=== PATIENT | male | born 1960 | race Caucasian/White ===

== ENCOUNTER 2020-12-03 18:19 | Emergency (ER) | payer BC ==
[2020-12-03 18:27] VITALS: BP 127/83
--- NOTE | 2020-12-03 18:43 | ED Physician Documentation ---
History of Present Illness - Stated complaint Stated Complaint: POST OP PX/RT KNEE - Chief complaint Chief Complaint: Ext Problem - History obtained from History obtained from: Patient - Additonal information Additional information: This is a 60-year-old male who underwent a right total knee replacement on 11/24/2020 at a facility in [place]. He presents today to rule out DVT. He states he was concerned due to increased swelling and pitting edema and the right lower leg as well as "burning" tenderness of the medial right lower leg. Discussed these findings with his surgeon who stated the bruising was as expected but recommended that he come in to rule out DVT. The patient does note that he had a fall on postop day #1 when he was at home and got up to walk and subsequently had a syncopal episode. The surgeon is aware of this and thought that perhaps his increased pain was secondary to the fall did not feel there is any damage to the surgical site. Been participating in physical therapy and states he has been really restricting his oxycodone use to approximately every 9 hours or so taking just 5 mg tablets and trying to wean himself off quickly as he does not want to be on this medication. Not had any fever, chills, flulike symptoms, chest pain or shortness of breath. No history of DVT or PE. Review of Systems Ten Systems: 10 systems reviewed and negative Musculoskeletal: reports: Extremity pain, Extremity swelling PD PAST MEDICAL HISTORY - Past Medical History Past Medical History: Yes - Past Surgical History Ortho: Knee replacement - Allergies Allergies/Adverse Reactions: Allergies Allergy/AdvReac Type Severity Reaction Status Date / Time No Known Drug Allergies Allergy Verified 12/03/20 18:21 PD ED PE NORMAL - Vitals Vital signs reviewed: Yes - General General: Alert and oriented X 3, No acute distress, Well developed/nourished - HEENT HEENT: Atraumatic, Pharynx benign - Cardiac Cardiac: RRR, No murmur - Respiratory Respiratory: No respiratory distress, Clear bilaterally - Derm Derm: Normal color, Warm and dry, Other (Bruising of the right leg as described below, no erythema or open lesions. Surgical site intact without erythema or drainage.) - Extremities Extremities: Other (There is a postop dressing to the right knee, there is no erythema around the surgical site or throughout the right leg. There is extensive bruising of the right medial and lateral thigh, behind the right knee, calf and around the medial right ankle. Skin is mildly tender to touch, does not feel jose) - Neuro Neuro: Alert and oriented X 3 Eye Opening: Spontaneous Motor: Obeys Commands Verbal: Oriented GCS Score: 15 Results - Vitals Vitals: Vital Signs - 24 hr 12/03/20 18:22 Temperature 36.5 C Heart Rate 86 Respiratory 16 Rate Blood Pressure 127/83 H O2 Saturation 96 Oxygen O2 Source Room air PD MEDICAL DECISION MAKING - ED course Complexity details: reviewed results, re-evaluated patient, considered differential, d/w patient ED course: 60-year-old male who presented approximately 9 days postop right total knee replacement with pain and swelling in the right lower leg. We obtained an ultrasound to rule out DVT and this was negative for DVT but did show an area of likely post operative seroma. There is no signs of cellulitis or focal abscess. The patient was advised to continue cool compress and therapy and pain medication as previously prescribed by his orthopedic surgeon follow-up with his orthopedic surgeon on Saturday as scheduled. Reviewed return precautions if he were to develop fever, increasing pain, shortness of breath or other new concerns. Departure - Departure Disposition: Home, Self Care Clinical Impression: Pain of lower extremity Qualifiers: Laterality: right Qualified Code(s): M79.604 - Pain in right leg Condition: Good Comments: You presented with swelling and pain in the right lower leg after a total knee replacement. We obtained an ultrasound which was reassuring and there are no signs of a deep vein thrombosis, abscess, or cellulitis (skin infection). You do have a fluid collection that is likely a postoperative seroma which can be painful but will dissipate with time as you heal. Please follow-up with your orthopedic surgeon on Saturday as previously scheduled, continue frequent cool compress and pain medication as needed. You may continue physical therapy as previously ordered.
--- NOTE | 2020-12-03 20:30 | Ultrasound Report ---
PROCEDURE: Duplex Ext Veins Right INDICATIONS: RLE pain/swelling s/p R TKR 11/24/20 TECHNIQUE: Real-time imaging, as well as color and pulse Doppler interrogation, were performed of the lower extr emity deep veins from the inguinal ligament to the popliteal fossa. COMPARISON: None. FINDINGS: The deep veins are normally compressible, and free of intraluminal thrombus. Color and pu lse Doppler demonstrate normal phasic intraluminal flow. There is normal augmentation response to di stal compression maneuver. Ill-defined hypoechoic collection within the soft tissue along medial aspect of right thigh extending to right knee level and measures up to 15.7 cm in length. No internal vascularity or peripheral hype rvascularity is seen. IMPRESSION: 1. No evidence of DVT in visualized right lower extremity veins. 2. Nonspecific deep soft tissue fluid collection along medial aspect of mid to distal right thigh and medial right knee joint and likely represent postsurgical seroma given patient's history of recent k nee replacement. No abscess collection is seen. No popliteal cyst. Reviewed by: Mino Ramsay MD on 12/03/2020 8:28 PM PDT Approved by: Mino Ramsay MD on 12/03/2020 8:28 PM PDT Station ID: [id number]
== END 2020-12-03 20:41 | disposition home or self-care (01) ==
LOC: ED 18:19
DX: G89.18 Other acute postprocedural pain (principal); Z96.651 Presence of right artificial knee joint; Z98.890 Other specified postprocedural states; R22.41 Localized swelling, mass and lump, right lower limb
CPT/HCPCS: 99282; 99284

== ENCOUNTER 2021-02-12 13:34 | Emergency (ER) | payer BC ==
[2021-02-12 14:01] VITALS: BP 125/81
[2021-02-12] MEDS ORDERED: BUPIVACAINE 0.5% PF 10 ML VIAL SUBQ STA (15:05)
--- NOTE | 2021-02-12 15:35 | ED Physician Documentation ---
History of Present Illness - Stated complaint Stated Complaint: MALE - Chief complaint Chief Complaint: General - History obtained from History obtained from: Patient - History of Present Illness Timing: How many days ago (2) - Additonal information Additional information: 60-year-old male who has had a problem with hemorrhoids previously has developed a hemorrhoid that has been giving him a problem for about 8 days. About 2 days ago it suddenly increased in size and the dramatic amount of pain he has, has been enough that he has not been able to sleep. He has severe pain just from coughing. He went into the clinic today saw Jes Aguilar who asked him to come up here to get the thrombosed hemorrhoid fixed. The patient has had this done once about 10 years ago. Review of Systems Constitutional: denies: Fever Respiratory: denies: Cough GI: reports: Other (rectal pain and mass). denies: Vomiting, Diarrhea : denies: Dysuria, Frequency PD PAST MEDICAL HISTORY - Past Surgical History Ortho: Knee replacement - Allergies Allergies/Adverse Reactions: Allergies Allergy/AdvReac Type Severity Reaction Status Date / Time No Known Drug Allergies Allergy Verified 02/12/21 14:01 PD ED PE NORMAL - Vitals Vital signs reviewed: Yes (hpyertensive ) - General General: Alert and oriented X 3, Well developed/nourished, Other (appears anxious ) - HEENT HEENT: Atraumatic, PERRL, EOMI - Respiratory Respiratory: No respiratory distress - Rectal Rectal: Other (There is a 10mm sized mass that is firm at 2 O'clock. The area is clean and the mass is not reducible. 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, No motor deficit, No sensory deficit, Normal speech Eye Opening: Spontaneous Motor: Obeys Commands Verbal: Oriented GCS Score: 15 - Psych Psych: Normal mood, Normal affect Results - Vitals Vitals: Vital Signs - 24 hr 02/12/21 13:59 Temperature 36.4 C L Heart Rate 69 Respiratory 16 Rate Blood Pressure 125/81 H O2 Saturation 98 Oxygen O2 Source Room air Procedures - General procedure General procedure: Patient was placed in the left lateral decubitus position and with his assist ance holding up the buttocks cheek the hemorrhoid was infused with half percent bupivicaine from the radial surface allowing excellent anesthesia. The area was cleansed with Betadine draped in a sterile fashion and a #11 blade was used to incise the skin over the hemorrhoid and with a curved forceps the clot was removed. The hemorrhoid is left open and there is scant bleeding. The patient has relief of pain. Departure - Departure Disposition: 01 Home, Self Care Clinical Impression: Thrombosed external hemorrhoid Condition: Stable Instructions: Hemorrhoids Thrombosed Follow-Up: CAMPOS NDIAYE MD [Primary Care Provider] - Comments: Mulugeta, today it looks like you had a thrombosed hemorrhoid and we were able to remove the clot. Your pain should be much improved. The numbing medicine we use will last about 4 to 6 hours. Clean well after a bowel movement and expect continued improvement in your pain over the next week. Discharge Date/Time: 02/12/21 15:43
== END 2021-02-12 15:43 | disposition home or self-care (01) ==
LOC: ED 13:34
DX: K64.5 Perianal venous thrombosis (principal)
CPT/HCPCS: 46083

== ENCOUNTER 2021-02-13 08:24 | Emergency (ER) | payer BC ==
[2021-02-13] MEDS ORDERED: LIDOCAINE/PRILOCAINE 2.5% CREAM 5 GM TUBE TOP STA (09:06)
[2021-02-13] MEDS ORDERED: BUPIVACAINE 0.5% PF 10 ML VIAL SUBQ STA (09:06)
--- NOTE | 2021-02-13 10:13 | ED Physician Documentation ---
PD HPI MALE - Stated complaint Stated Complaint: MALE - Chief complaint Chief Complaint: Abd Pain - History obtained from History obtained from: Patient - History of Present Illness Timing - onset: Yesterday Timing - duration: Days (1) Timing - details: Abrupt onset, Still present Associated symptoms: Other (painful hemorroid) Similar symptoms before: Diagnosis (thrombosed hemorrhoid) Recently seen: Clinic, Emergency Dept - Additional information Additional information: 60-year-old male seen in the emerge department yesterday for thrombosed hemorrhoid and he had the thrombosis excised with an incision. He comes back today with swelling to the area and tenderness and he is worried about persistent clot.He has persistent pain. Review of Systems Constitutional: denies: Fever, Chills Respiratory: denies: Cough GI: reports: Other (rectal pain and mass). denies: Abdominal Pain, Nausea, Vomiting : denies: Dysuria, Frequency PD PAST MEDICAL HISTORY - Past Surgical History Ortho: Knee replacement - Present Medications Home Medications: Ambulatory Orders Medication Instructions Recorded Confirmed Lidocaine/Prilocain 2.5% Cream 1 each TP TID PRN #4 kit 02/13/21 [Emla 2.5% Cream] - Allergies Allergies/Adverse Reactions: Allergies Allergy/AdvReac Type Severity Reaction Status Date / Time No Known Drug Allergies Allergy Verified 02/13/21 08:32 - Social History Does the pt smoke?: No Smoking Status: Never smoker PD ED PE NORMAL - Vitals Vital signs reviewed: Yes (normal ) - General General: Alert and oriented X 3, No acute distress, Well developed/nourished - HEENT HEENT: Atraumatic, PERRL, EOMI - Respiratory Respiratory: No respiratory distress - Rectal Rectal: Other (The rectum is reexamined and there remains a 1 cm mass present this looks like swelling and ecchymosis around the surgical site. The hemorrhoidal mass itself no longer has a clot in it. 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, No motor deficit, No sensory deficit, Normal speech Eye Opening: Spontaneous Motor: Obeys Commands Verbal: Oriented GCS Score: 15 - Psych Psych: Normal mood, Normal affect Results - Vitals Vitals: Vital Signs - 24 hr 02/13/21 02/13/21 08:34 10:46 Temperature 36.7 C 36.7 C Heart Rate 98 90 Respiratory 18 14 Rate Blood Pressure 120/76 125/80 O2 Saturation 98 99 Oxygen O2 Source Room air PD MEDICAL DECISION MAKING - ED course Complexity details: reviewed results, re-evaluated patient, considered differential, d/w patient ED course: 60-year-old male with a thrombosed hemorrhoid that was opened and the clot removed yesterday has persistence of pain and mass the area looks swollen. It is tender. He has some relief with use of EMLA cream. We did not provide the patient with any pain medication yesterday. Today we are providing him with some pain medication and the expectation is this will resolve over the next week. Departure - Departure Disposition: 01 Home, Self Care Clinical Impression: Thrombosed external hemorrhoid Instructions: Lidocaine Prilocaine cream, ED Hemorrhoids Follow-Up: Your, doctor [Other] Prescriptions: Lidocaine/Prilocain 2.5% Cream [Emla 2.5% Cream] 1 each TP TID PRN #4 kit PRN Reason: Rectal Pain Comments: `Mulugeta today there is significant swelling associated with this procedure we did yesterday and this will take several days for it to resolve. The recommendation is to use the EMLA cream as needed for the pain. The medication we gave you for it reexamination today will wear off in about 4 to 6 hours. The EMLA cream has been E scribed to Azeem Schaefer in [place]. Discharge Date/Time: 02/13/21 10:52
[2021-02-13 10:46] VITALS: BP 125/80
== END 2021-02-13 10:52 | disposition home or self-care (01) ==
LOC: ED 08:24
DX: K64.5 Perianal venous thrombosis (principal)
CPT/HCPCS: 99282; 99283; J3490